=== PATIENT | male | born 1955 | race Caucasian/White ===

== ENCOUNTER 2018-11-12 05:29 | Inpatient (IN) | payer OTHER ==
[~2018-11-12] VITALS: Ht 185.4 cm; Wt 116.1 kg
[2018-11-12] MEDS ORDERED: Aspir 8181 MG PO (05:42)
[2018-11-12] MEDS ORDERED: METO50ER PO (05:42)
[2018-11-12] MEDS ORDERED: OMEP20ER PO (05:43)
[2018-11-12] MEDS ORDERED: METF500 PO (05:43)
[2018-11-12] MEDS ORDERED: GLIP5 PO ×2 (05:44)
[2018-11-12 05:57] LABS: BASOPHILS ABSOLUTE AUTO 0.09 K/mm3 (0.00-0.23); BASOPHILS PERCENT AUTO 1 % (0-2); EOSINOPHILS ABSOLUTE AUTO 0.59 K/mm3 (0.00-0.68); EOSINOPHILS PERCENT AUTO 3 % (0-6); Hemoglobin 13.9 g/dL (13.5-17.5); IMMATURE GRAN ABSOLUTE AUTO 0.07 K/mm3 (0.00-0.10); IMMATURE GRAN PERCENT AUTO 0 % (0-1); LYMPHOCYTES PERCENT AUTO 14 % (21-46); MONOCYTES ABSOLUTE AUTO 1.17 K/mm3 (0.16-1.47); MONOCYTES PERCENT AUTO 6 % (4-13); Mean Corpuscular HGB 30.1 pg (26.0-34.0); Mean Corpuscular HGB Conc 33.1 g/dL (31.5-36.5); Mean Corpuscular Volume 91 fL (80-100); Mean Platelet Volume 11.7 fL (9.1-12.4); NEUTROPHILS ABSOLUTE AUTO 14.16 K/mm3 (1.96-9.15); NEUTROPHILS PERCENT AUTO 75 % (41-73); Platelet Count 206 K/mm3 (150-400); RDW Coefficient Variation 12.6 % (11.7-14.2); RDW Standard Deviation 41.6 fL (35.1-46.3); Red Blood Cell Count 4.62 M/mm3 (4.30-5.90); White Blood Cell Count 18.78 K/mm3 (4.00-11.30)
[2018-11-12 06:10] LABS: Alanine Aminotransfer (ALT/SGP 35 U/L (12-78); Albumin, Blood 3.4 g/dL (3.4-5.0); Albumin/Globulin Ratio 0.8 (0.8-1.8); Alk Phos 54 U/L (50-136); Anion Gap 12 mmol/L (6-16); Aspartate Aminotrans (AST/SGOT 18 U/L (12-37); Bilirubin, Total 0.4 mg/dL (0.1-1.0); Blood Urea Nitrogen 17 mg/dL (8-24); Bun/Creatinine Ratio 20.6 (12.0-20.0); CO2, Blood 25 mmol/L (21-32); Calcium, Blood 8.6 mg/dL (8.5-10.1); Chloride, Blood 105 mmol/L (98-108); Creatinine, Blood 0.83 mg/dL (0.60-1.20); Globulin, Blood 4.1 g/dL (2.2-4.0); Glomerular Filtration Rate >60 (60-); Glucose, Blood 123 mg/dL (70-99); Potassium, Blood 3.6 mmol/L (3.5-5.5); Sodium, Blood 142 mmol/L (136-145); Total Protein, Blood 7.5 g/dL (6.4-8.2)
[2018-11-12 07:15] LABS: Source, Urine Clean Catch
[2018-11-12 07:20] LABS: Appearance, Urine Clear (Clear); Bilirubin, Urine Neg (Neg); Blood, Urine 2+ (Neg); Color, Urine Yellow (P-Yellow); Glucose Qualitative, Urine Neg (Neg); Ketones, Urine Neg (Neg); Leukocyte Esterase, Urine Neg (Neg); Nitrite, Urine Neg (Neg); Protein, Urine 2+ (Neg); Specific Gravity, Urine 1.015 (1.003-1.022); Urobilinogen, Urine NORM (Normal)
[2018-11-12 07:31] LABS: Bacteria Rare /hpf; Mucus Mod ({null, 0-Heavy}); Squamous Epithelial Cells Rare /hpf (Few); White Blood Cells, Urine 0-2 /hpf (0-5)
[2018-11-12 07:56] LABS: International Normalized Ratio 1.08; Prothrombin Time Results 11.4 Sec (9.7-11.5)
--- NOTE | 2018-11-12 10:15 | NUR ---
INITIAL ASSESSMENT PATIENT ARRIVED TO UNIT FROM ER AT 1000. PATIENT SBA TO ICU BED FROM ER [facility]. PATIENT REPORTED NO WEAKNESS OR LIGHT HEADEDNESS. PATIENT DENIES PAIN OR DISCOMFORT. PATIENT AFEBRILE. PATIENT ALERT AND ORIENTED X 4. PATIENT SATTING 90% AND GREATER ON RA. LUNGS CLEAR IN UPPER LOBES AND DIMINSIHED IN LOWER LOBES. PATIENT REPORTS OCCASIONAL, DRY COUGH. PATIENT IN NSR, HR 70S TO 80S. SBP IN THE 80S. LEVOPHED INFUSING AT 2 MCG/ MINUTE. ABDOMEN MILDLY DISTENDED, FIRM WITH HYPOACTIVE BS. PATIENT DENIES ABD TENDERNESS. PATIENT STATES LAST BM WAS YESTERDAY. PATIENT ON ADA DIET. WNL- URINAL PLACED AT BEDSIDE. PATIENT HAS SCAR NOTED TO MIDLINE ABDOMEN, OTHERWISE SKIN APPEARS C/D/I. BED LOW, CALL LIGHT IN REACH. PATIENT ORIENTED TO UNIT, ROOM AND CALL SYSTEM. WILL CONTINUE TO MONITOR PATIENT FREQUENTLY THROUGHOUT SHIFT.
--- NOTE | 2018-11-12 12:03 | NUR ---
PATIENT RESTING QUIETLY IN BED, WATCHING TV. NO COMPLAINTS. PATIENT FINISHED 100% OF LUNCH. NO COMPLAINTS OF NAUSEA. PATIENT AFEBRILE. PATIENT IN NSR, HR IN THE 80S. SBP IN THE 90S. NS INFUSING AT 200 MLS/ HOUR, NS TKO, AND LEVOPHED AT 2 MCG/ MINUTE. 1 L NS BOLUS FINISHED SHORT TIME AGO. NO OTHER ACUTE CHANGES TO NOTE ON AT THIS TIME. WILL CONTINUE TO MONITOR.
[2018-11-12] MEDS ORDERED: ATOR40TA PO (13:25)
[2018-11-12] MEDS ORDERED: ZOSTAVAX V19400 UNIT IM (13:30)
[2018-11-12] MEDS ORDERED: Prinivil10 MG PO (13:31)
[2018-11-12] MEDS ORDERED: METO50 PO (13:32)
[2018-11-12] MEDS ORDERED: Isosorbide Mono30 MG PO (13:33)
[2018-11-12 13:34] LABS: Adenovirus Not Detected (NOT DETECT); Bordetella pertussis Not Detected (NOT DETECT); Chlamydophila pneumoniae Not Detected (NOT DETECT); Coronavirus 229E Not Detected (NOT DETECT); Coronavirus HKU1 Not Detected (NOT DETECT); Coronavirus NL63 Not Detected (NOT DETECT); Coronavirus OC43 Not Detected (NOT DETECT); Human Metapneumovirus Not Detected (NOT DETECT); Human Rhinovirus/Enterovirus Not Detected (NOT DETECT); Influenza A Not Detected (NOT DETECT); Influenza A/2009-H1 Not Detected (NOT DETECT); Influenza A/H1 Not Detected (NOT DETECT); Influenza A/H3 Not Detected (NOT DETECT); Influenza B Not Detected (NOT DETECT); Mycoplasma pneumoniae Not Detected (NOT DETECT); Parainfluenza Virus 1 Not Detected (NOT DETECT); Parainfluenza Virus 2 Not Detected (NOT DETECT); Parainfluenza Virus 3 Not Detected (NOT DETECT); Parainfluenza Virus 4 Not Detected (NOT DETECT); Respiratory Syncytial Virus Not Detected (NOT DETECT)
[2018-11-12] MEDS ORDERED: VITAMIN D5000 UNIT PO (13:37)
[2018-11-12] MEDS ORDERED: NITR.4SL SL (13:38)
--- NOTE | 2018-11-12 14:05 | NUR ---
DR. NUNEZ UPDATED ON PATIENT STATUS. INFORMED THAT MEDICATION RECONCILIATION HAS BEEN UPDATED.
--- NOTE | 2018-11-12 16:32 | NUR ---
PATIENT RESTING QUIETLY, WATCHING TV IN BED. NO COMPLAINTS. AFEBRILE. PATIENT REMAINS IN SR, HR 70S TO 90S. BP STABLE. SBP IN THE LOW 100S. LEVOPHED HAS BEEN ON STANDBY SINCE AROUND 1315. NS REMAINS INFUSING AT 200 MLS/ HOUR. NS TKO. URINE NEEL IN COLOR. BLOOD SUGAR OF 105- COVERAGE NOT INDICATED. NO OTHER ACUTE CHANGES TO NOTE ON AT THIS TIME. WILL CONTINUE TO MONITOR.
--- NOTE | 2018-11-12 19:00 | NUR ---
SHIFT SUMMARY PATIENT REMAINED ALERT AND ORIENTED X 4, AFEBRILE. PATIENT AMBULATED WELL TO TOILET WITH SBA. PATIENT DENIED WEAKNESS OR DIZZINESS. PATIENT HAD NO COMPLAINTS OF PAIN. PATIENT REMAINED SATTING WELL ON RA. PATIENT CONTINUES TO HAVE OCCASIONAL DRY COUGH. SPUTUM CULTURE STILL TO BE OBTAINED. RESPIRATORY PANEL SENT TO LAB. PATIENT REMAINED IN SR, HR 70S TO 90S. SBP RANGED FROM 80S TO LOW 100S. LEVOPHED DRIP AT 2 MCG/ MIN WHEN FIRST ARRIVED TO UNIT. LEVOPHED HAS BEEN OFF SINCE AROUND 1315. SCDS IN PLACE. PATIENT HAD HARD, MEDIUM BM THIS SHIFT. PATIENT HAD GOOD APPETITE. PATIENT VOIDING TEA TO NEEL COLORED URINE. NS INFUSING AT 200 MLS/ HOUR, NS TKO. PATIENT RECEIVING SCHEDULED AZITHROMYCIN AND ZOSYN. BLOOD SUGARS 105-134- NO COVERAGE NEEDED. PATIENT HAS NO COMPLAINTS AT THIS TIME. BED LOW, CALL LIGHT IN REACH. REPORT GIVEN TO ONCOMING TIME STAMP ASSEMBLER NURSE.
--- NOTE | 2018-11-12 19:15 | NUR ---
ASSUMED CARE ASSUMED CARE OF PATIENT. AWAKE AND ALERT. WATCHING TV AT THIS TIME. DENIES C/O PAIN OR DISCOMFORT. MONITOR SHOWS NSR, RATE 70s. SBP 90s-100s. RESPIRATIONS EVEN AND UNLABORED. DENIES SOB. OCCASIONAL DRY COUGH NOTED. VOIDING WITHOUT DIFFICULTY. DENIES NAUSEA. SEE SHIFT ASSESSMENT FOR FULL ASSESSMENT.
[2018-11-13 03:30] LABS: BASOPHILS ABSOLUTE AUTO 0.05 K/mm3 (0.00-0.23); BASOPHILS PERCENT AUTO 0 % (0-2); EOSINOPHILS ABSOLUTE AUTO 0.43 K/mm3 (0.00-0.68); EOSINOPHILS PERCENT AUTO 3 % (0-6); Hematocrit 34.7 % (37.0-53.0); Hemoglobin 11.4 g/dL (13.5-17.5); IMMATURE GRAN ABSOLUTE AUTO 0.04 K/mm3 (0.00-0.10); IMMATURE GRAN PERCENT AUTO 0 % (0-1); LYMPHOCYTES PERCENT AUTO 14 % (21-46); MONOCYTES ABSOLUTE AUTO 1.32 K/mm3 (0.16-1.47); MONOCYTES PERCENT AUTO 10 % (4-13); Mean Corpuscular HGB 30.4 pg (26.0-34.0); Mean Corpuscular HGB Conc 32.9 g/dL (31.5-36.5); Mean Corpuscular Volume 93 fL (80-100); Mean Platelet Volume 11.2 fL (9.1-12.4); NEUTROPHILS PERCENT AUTO 73 % (41-73); Platelet Count 152 K/mm3 (150-400); RDW Standard Deviation 44.1 fL (35.1-46.3); Red Blood Cell Count 3.75 M/mm3 (4.30-5.90); White Blood Cell Count 13.74 K/mm3 (4.00-11.30)
[2018-11-13 03:49] LABS: Alanine Aminotransfer (ALT/SGP 27 U/L (12-78); Albumin, Blood 2.7 g/dL (3.4-5.0); Albumin/Globulin Ratio 0.8 (0.8-1.8); Alk Phos 38 U/L (50-136); Anion Gap 5 mmol/L (6-16); Aspartate Aminotrans (AST/SGOT 17 U/L (12-37); Bilirubin, Total 0.5 mg/dL (0.1-1.0); Blood Urea Nitrogen 10 mg/dL (8-24); CO2, Blood 27 mmol/L (21-32); Calcium, Blood 7.2 mg/dL (8.5-10.1); Chloride, Blood 112 mmol/L (98-108); Creatinine, Blood 0.67 mg/dL (0.60-1.20); Globulin, Blood 3.4 g/dL (2.2-4.0); Glomerular Filtration Rate >60 (60-); Glucose, Blood 134 mg/dL (70-99); Magnesium, Blood 1.5 mg/dL (1.6-2.4); Phosphorus, Blood 1.6 mg/dL (2.5-4.9); Potassium, Blood 3.6 mmol/L (3.5-5.5); Sodium, Blood 144 mmol/L (136-145); Total Protein, Blood 6.1 g/dL (6.4-8.2)
--- NOTE | 2018-11-13 04:55 | NUR ---
ABNORMAL LABS LOW MAGNESIUM AND PHOSPHOROUS LEVELS CALLED TO DR. FARRIS. NEW ORDERS RECEIVED.
--- NOTE | 2018-11-13 06:38 | NUR ---
SHIFT SUMMARY NO ACUTE CHANGES. SLEPT INTERMITTENTLY WHEN UNDISTURBED. DENIED C/O PAIN OR DISCOMFORT T/O SHIFT. DENIES NAUSEA. SBP 90s-110s. MONITOR SHOWS NSR. REMAINS ON RA- SATS 97-99%. RESPIRATIONS EVEN AND UNLABORED. CONTINUES WITH OCCASIONAL DRY COUGH. VOIDING WITHOUT DIFFICULTY. TOLERATING FLUIDS/DIET. NS INFUSING @ 100CC/HR PER ORDER.
--- NOTE | 2018-11-13 07:47 | NUR ---
DR. NUNEZ UPDATED ON PATIENT STATUS. INFORMED THAT PATIENT RECEIVED PO MAG AND KPHOS THIS AM. INFORMED THAT PATIENT HAD TMAX OF 99.4 DEGREES FAHRENHEIT DURING NIGHT. INFORMED THAT PATIENT BP SOFT AT TIMES DURING NIGHT BUT REMAINED OFF LEVOPHED DRIP. ORDERS RECEIVED.
--- NOTE | 2018-11-13 08:10 | NUR ---
INITIAL ASSESSMENT PATIENT RESTING QUIETLY IN BED, WATCHING TV UPON ENTERING ROOM. PATIENT ALERT AND ORIENTED X 4, AFEBRILE. PATIENT DENIES PAIN OR DISCOMFORT. PATIENT INDEPENDENT IN BED AND PERFORMING ADLS. PATIENT SBA WHEN OOB DUE TO LINES AND CORDS. PATIENT SATTING 94% ON RA. LUNGS CLEAR IN UPPER LOBES AND DIMINISHED IN LOWER LOBES. PATIENT REPORTS OCCASIONAL, DRY COUGH. PATIENT IN SR TO ST, HR 80S TO LOW 100S. SBP 120S TO 140S. ABDOMEN MILDLY DISTENDED, FIRM, WITH HYPERACTVE BS NOTED. PATIENT DENIES NAUSEA. TOLERATING ADA DIET WELL. LAST BM YESTERDAY. VOIDING YELLOW URINE INTO BEDSIDE URINAL. SCAR NOTED TO MIDLINE ABDOMEN, OTHERWISE SKIN C/D/I. NS AT 100 MLS/ HOUR DC'D THIS AM. NS TKO FOR AM ANTIBIOTICS AT THIS TIME. PATIENT RECEIVED PO MAG AND KPHOS THIS AM FOR PHOS OF 1.6 AND MAG OF 1.5. ADDITIONAL ORDERS RECEIVED FROM DR. NUNEZ. BED LOW, CALL LIGHT IN REACH. WILL CONTINUE TO MONITOR PATIENT FREQUENTLY THROUGHOUT SHIFT.
--- NOTE | 2018-11-13 10:07 | NUR ---
DR. NUNEZ HERE TO SEE PATIENT.
--- NOTE | 2018-11-13 12:20 | NUR ---
PATIENT RESTING QUIETLY IN BED. NO COMPLAINTS. BS OF 127- NO COVERAGE INDICATED. PATIENT ATE ALL OF LUNCH. NO ACUTE CHANGES TO NOTE ON AT THIS TIME. WILL CONTINUE TO MONITOR.
--- NOTE | 2018-11-13 12:33 | NUR ---
SHIFT SUMMARY PATIENT REMAINED ALERT AND ORIENTED X 4, AFEBRILE. PATIENT AMBULATING WELL IN ROOM. PATIENT HAS HAD NO COMPLAINTS OF PAIN. PATIENT HAS REMAINED SATTING WELL ON RA. PATIENT CONTINUES TO HAVE OCCASIONAL, DRY COUGH. PATIENT HAS BEEN IN SR TO ST, HR 80S TO LOW 100S. BP HAS REMAINED STABLE. PATIENT HAS NOT HAD BM THIS SHIFT. PATIENT HAS HAD GOOD APPETITE AND IS TOLERATING ADA DIET WELL. PATIENT REMAINS VOIDING YELLOW URINE INTO BEDSIDE URINAL. NO CHANGE TO SKIN. IV SALINE LOCKED. PATIENT OFFERED SHOWER, BUT REFUSED FOR NOW. NO COVERAGE HAS BEEN NEEDED FOR BLOOD SUGAR LEVELS. PATIENT HAS NO COMPLAINTS AT THIS TIME. PATIENT IS GOING TO BE TRANSFERRED TO MEDICAL FLOOR, ROOM 331 SHORTLY. REPORT HAS BEEN GIVEN TO ASSUMING NURSE.
--- NOTE | 2018-11-13 12:48 | NUR ---
PATIENT TRANSFERRED TO MEDICAL FLOOR BY CHARGE NURSE.
--- NOTE | 2018-11-13 12:50 | NUR ---
PATIENT TRANSFERRED FROM U 3 TO 331 VIA W/C. REPORT RECEIVED FROM CHAMP ENRIQUEZ. PATIENT ORIENTED TO ROOM AND USE OF CALL LIGHT. DENIES ANY PAIN OR DISCOMFORT. LUNGS CLEAR/DIM, ON RA. SKIN INTACT. 18G IV TP L FA WNL AND SL. NO TELE. ADA DIET WITH ACHS BLOOD SUGARS, NO COVERAGE NEEDED TODAY. REVIEWED PLAN OF CARE WITH PATIENT AND INSTRUCTED TO CALL FOR ASSISTANCE.
--- NOTE | 2018-11-14 04:56 | NUR ---
SHIFT SUMMARY NO ACUTE CHANGES THIS SHIFT. PT'S STRENGTH HAS RETURNED. PT AMBULATES INDEPENDENTLY IN THE ROOM. HAD A SHOWER EARLY IN THE SHIFT. PT DENIES ANY PAIN OR DISCOMFORT ASIDE FROM CHRONIC ARTHRITIS THAT HE DENIES NEEDING MEDICATION FOR. PT SLEPT WELL THROUGHOUT THE NIGHT. VSS. WILL CONTINUE TO MONITOR.
[2018-11-14 06:21] LABS: Hematocrit 38.1 % (37.0-53.0); Hemoglobin 12.7 g/dL (13.5-17.5); Mean Corpuscular HGB 30.2 pg (26.0-34.0); Mean Corpuscular HGB Conc 33.3 g/dL (31.5-36.5); Mean Corpuscular Volume 91 fL (80-100); Mean Platelet Volume 11.2 fL (9.1-12.4); Platelet Count 182 K/mm3 (150-400); RDW Coefficient Variation 12.8 % (11.7-14.2); RDW Standard Deviation 42.5 fL (35.1-46.3); Red Blood Cell Count 4.21 M/mm3 (4.30-5.90); White Blood Cell Count 9.86 K/mm3 (4.00-11.30)
[2018-11-14 06:40] LABS: Albumin, Blood 2.9 g/dL (3.4-5.0); Anion Gap 2 mmol/L (6-16); Blood Urea Nitrogen 7 mg/dL (8-24); Bun/Creatinine Ratio 12.1 (12.0-20.0); CO2, Blood 30 mmol/L (21-32); Calcium, Blood 8.2 mg/dL (8.5-10.1); Chloride, Blood 107 mmol/L (98-108); Creatinine, Blood 0.58 mg/dL (0.60-1.20); Glomerular Filtration Rate >60 (60-); Glucose, Blood 138 mg/dL (70-99); Phosphorus, Blood 2.4 mg/dL (2.5-4.9); Potassium, Blood 3.6 mmol/L (3.5-5.5); Sodium, Blood 139 mmol/L (136-145)
[2018-11-14] MEDS ORDERED: ACET325 PO (11:16)
[2018-11-14] MEDS ORDERED: AMOCLA875 PO (11:17)
[2018-11-14] MEDS ORDERED: LACT PO (11:17)
[2018-11-14] MEDS ORDERED: AZIT500 PO (11:18)
--- NOTE | 2018-11-14 11:51 | NUR ---
PATIENT AWARE HAS F/U APPT AT [facility] AND TO [facility] [employer] [facility] AT [facility] REVIEW 3 NEW MEDS. AWARE WHEN AND HOW TO TAKE. AWARE CAN RETURN TO [facility] IF ANY PROBLEMS. ANSWER ALL QUESTIONS. NEPHEW IN ROOM WHO IS HERE TO [facility] [employer]. AWAITING ESCORT.
== END 2018-11-14 11:57 | disposition home or self-care (01) | DRG 871 ==
LOC: ER 05:29 → ICUW 07:32 → ICUE 10:00 → MEDS 11-13 12:48
PROVIDERS: Emergency Medicine; ADMIT Internal Medicine
PROC: 3E053XZ Introduction of Vasopressor into Peripheral Artery, Percutaneous Approach (ICD-10-PCS; principal; 2018-11-12)
DX: A41.9 Sepsis, unspecified organism (principal); R65.21 Severe sepsis with septic shock; J69.0 Pneumonitis due to inhalation of food and vomit; J18.1 Lobar pneumonia, unspecified organism; E87.70 Fluid overload, unspecified; E83.39 Other disorders of phosphorus metabolism; E83.42 Hypomagnesemia; E11.9 Type 2 diabetes mellitus without complications; I10 Essential (primary) hypertension; K21.9 Gastro-esophageal reflux disease without esophagitis; E78.5 Hyperlipidemia, unspecified; E66.01 Morbid (severe) obesity due to excess calories; R11.2 Nausea with vomiting, unspecified; T50.Z95A Adverse effect of other vaccines and biological substances, initial encounter; Z68.31 Body mass index [BMI] 31.0-31.9, adult
CPT/HCPCS: 0099U; 36415; 71045; 80053; 80069; 81001; 82947; 83605; 83690; 83735; 84100; 84145; 85025; 85027; 85610; 85730; 87040; 93005; 93010; 96361; 96365; 96367; 96375; 99285-25; J0456; J1650; J1885; J2405; J2543; J7030; J7040; J7050; J7060

== ENCOUNTER 2022-01-26 13:59 | Emergency (ER) | payer OTHER ==
[~2022-01-26] VITALS: Ht 188 cm; Wt 113.4 kg
[~2022-01-26 13:59] MED LIST: ACET325 PO; AMOCLA875 PO; ATOR40TA PO; AZIT500 PO; Aspir 8181 MG PO; GLIP5 PO; Isosorbide Mono30 MG PO; LACT PO; METF500 PO; METO50 PO; METO50ER PO; NITR.4SL SL; OMEP20ER PO; Prinivil10 MG PO; VITAMIN D5000 UNIT PO; ZOSTAVAX V19400 UNIT IM
[2022-01-26 16:20] LABS: BASOPHILS PERCENT AUTO 1 % (0-2); EOSINOPHILS ABSOLUTE AUTO 0.67 K/mm3 (0.00-0.68); EOSINOPHILS PERCENT AUTO 7 % (0-6); Hematocrit 37.6 % (37.0-53.0); Hemoglobin 12.3 g/dL (13.5-17.5); IMMATURE GRAN ABSOLUTE AUTO 0.03 K/mm3 (0.00-0.10); IMMATURE GRAN PERCENT AUTO 0 % (0-1); LYMPHOCYTES ABSOLUTE AUTO 1.88 K/mm3 (0.84-5.20); LYMPHOCYTES PERCENT AUTO 19 % (21-46); MONOCYTES ABSOLUTE AUTO 0.78 K/mm3 (0.16-1.47); MONOCYTES PERCENT AUTO 8 % (4-13); Mean Corpuscular HGB 29.5 pg (26.0-34.0); Mean Corpuscular HGB Conc 32.7 g/dL (31.5-36.5); Mean Corpuscular Volume 90 fL (80-100); Mean Platelet Volume 11.9 fL (9.1-12.4); NEUTROPHILS ABSOLUTE AUTO 6.44 K/mm3 (1.96-9.15); NEUTROPHILS PERCENT AUTO 65 % (41-73); Platelet Count 181 K/mm3 (150-400); RDW Coefficient Variation 12.5 % (11.7-14.2); RDW Standard Deviation 41.3 fL (35.1-46.3); Red Blood Cell Count 4.17 M/mm3 (4.30-5.90)
[2022-01-26 16:39] LABS: Albumin, Blood 3.3 g/dL (3.4-5.0); Albumin/Globulin Ratio 0.9 (0.8-1.8); Bilirubin, Total 0.5 mg/dL (0.1-1.0); Bun/Creatinine Ratio 16.5 (12.0-20.0); Calcium, Blood 8.4 mg/dL (8.5-10.1); Creatinine, Blood 0.79 mg/dL (0.60-1.20); Globulin, Blood 3.6 g/dL (2.2-4.0); Total Protein, Blood 6.9 g/dL (6.4-8.2)
[2022-01-26 17:15] LABS: Influenza A, PCR NEGATIVE (NEGATIVE); Influenza B, PCR NEGATIVE (NEGATIVE); Resp Syncytial Virus, PCR NEGATIVE (NEGATIVE); SARS-Cov-2 (COVID-19) PCR, MMC NEGATIVE (NEGATIVE)
== END 2022-01-26 18:58 | disposition home or self-care (01) ==
LOC: ER 13:59
PROVIDERS: Student in an Organized Health Care Education/Training Program
DX: R07.89 Other chest pain (principal); I10 Essential (primary) hypertension; I25.10 Atherosclerotic heart disease of native coronary artery without angina pectoris; E11.9 Type 2 diabetes mellitus without complications; K21.9 Gastro-esophageal reflux disease without esophagitis; E78.5 Hyperlipidemia, unspecified; Z20.822 Contact with and (suspected) exposure to COVID-19; Z79.899 Other long term (current) drug therapy; Z79.82 Long term (current) use of aspirin; Z79.84 Long term (current) use of oral hypoglycemic drugs; Z87.891 Personal history of nicotine dependence
CPT/HCPCS: 0241U; 71045; 80053; 83690; 83880; 84484; 85025; 93005; 93010; J2270